=== PATIENT | male | born 1960 | race Caucasian/White ===

== ENCOUNTER 2020-02-11 04:26 | Observation (INO) | payer BC ==
[~2020-02-11] VITALS: Ht 180.3 cm; Wt 96.5 kg
--- NOTE | 2020-02-11 04:31 | NUR ---
Note floraone in EDM - 02/11/20 at 0432 by [email or web address] report from SYLVIA Bobo. assuming care at this time. [facility] [place] [facility]. obvious weakness to lue. pt unsteady of feet. 1assist required.
--- NOTE | 2020-02-11 04:49 | NUR ---
EKG DONE IN TRIAGE
[2020-02-11] MEDS ORDERED: ASPIRIN 81 MG TABLET CHEW PO ONE (05:00)
[2020-02-11] MEDS ORDERED: SODIUM CHLORIDE FLUSH 10ML SYR IVF ONE (05:00)
[2020-02-11] MEDS ORDERED: LORazepam 1MG TABLET PO ONE (05:00)
[2020-02-11 05:03] LABS: BASOPHILS # (AUTO) 0.03 x10^3/uL (0-0.1); BASOPHILS % (AUTO) 0 % (0-1); EOSINOPHILS # (AUTO) 0.57 x10^3/uL (0-0.4); EOSINOPHILS % (AUTO) 8 % (1-7); LYMPHOCYTES # (AUTO) 2.27 x10^3/uL (1-3.4); LYMPHOCYTES % (AUTO) 30 % (22-44); MD NO; MEAN CORPUSCULAR HEMOGLOBIN 29.5 pg (27.5-34.5); MEAN CORPUSCULAR HGB CONC 33.6 g/dL (33.2-36.2); MEAN CORPUSCULAR VOLUME 87.8 fL (81-97); MEAN PLATELET VOLUME 8.5 fL (7.4-10.4); MONOCYTES # (AUTO) 0.68 x10^3/uL (0.2-0.8); MONOCYTES % (AUTO) 9 % (2-9); NEUTROPHILS # (AUTO) 3.92 x10^3/uL (1.8-6.8); NEUTROPHILS % (AUTO) 52 % (42-75); PLATELET COUNT 232 x10^3/uL (130-400); RED BLOOD COUNT 5.39 x10^6/uL (4.38-5.82); RED CELL DISTRIBUTION WIDTH 13.3 % (9.4-14.8)
[2020-02-11] MEDS ORDERED: ASPIRIN 81 MG TABLET CHEW ONE (05:12)
[2020-02-11 05:13] LABS: ALBUMIN 3.9 g/dL (3.4-5.0); ANION GAP 7 mmol/L (5-15); CALCIUM 9.2 mg/dL (8.5-10.1); CHLORIDE 107 mmol/L (98-107)
[2020-02-11] MEDS ORDERED: LORazepam 1MG TABLET ONE (05:13)
[2020-02-11 05:17] LABS: TROPONIN I < 0.015 ng/mL (0.000-0.045)
--- NOTE | 2020-02-11 06:56 | NUR ---
RECEIVED REPORT FROM SYLVIA JASSO. THIS RN TO ASSUME CARE. PT LAYING IN BED, NO SIGNS OF DISTRESS. WILL CONTINUE TO MONITOR AND WATCH FOR ORDERS.
[2020-02-11] MEDS ORDERED: GLUCOSAMINE PO (07:00)
[2020-02-11] MEDS ORDERED: TUMERIC PO (07:01)
--- NOTE | 2020-02-11 07:38 | NUR ---
HOSPITALIST TO BEDSIDE. PT SITTING IN BED, NO SIGNS OF DISTRESS. REPORT GIVEN TO SYLVIA SEWELL.
[2020-02-11] MEDS ORDERED: ONDANSETRON 2MG/ML, 2ML IVPush PRN (08:00)
[2020-02-11] MEDS ORDERED: LABETALOL 5MG/ML, 20ML IVPush PRN (08:00)
[2020-02-11] MEDS ORDERED: NITROGLYCERIN 0.4 MG BOTTLE (25 TABS) SL PRN (08:00)
[2020-02-11] MEDS ORDERED: ACETAMINOPHEN 325 MG TABLET PO PRN (08:00)
[2020-02-11] MEDS ORDERED: NITROGLYCERIN 0.4 MG/SPRAY SL PRN (08:00)
[2020-02-11] MEDS ORDERED: MORPHINE SULFATE 4 MG/ML, 1ML IVPush PRN (08:00)
[2020-02-11] MEDS ORDERED: ENOXAPARIN 40 MG/0.4 ML SQ SCH (08:00)
[2020-02-11] MEDS ORDERED: ONDANSETRON ODT 4 MG PO PRN (08:00)
[2020-02-11 08:10] LABS: TROPONIN I < 0.015 ng/mL (0.000-0.045)
[2020-02-11 09:05] VITALS: BP 162/111
[2020-02-11 13:10] LABS: TROPONIN I < 0.015 ng/mL (0.000-0.045)
[2020-02-11 13:50] VITALS: BP 138/90
[2020-02-11] MEDS ORDERED: BUDE10.2 INH (16:18)
[2020-02-11 19:36] LABS: TROPONIN I < 0.015 ng/mL (0.000-0.045)
[2020-02-11] MEDS: BUDESONIDE 0.5 MG/2 ML INHA NPPB SCH (20:05)
[2020-02-11 21:52] VITALS: BP 138/83
[2020-02-12 01:53] VITALS: BP 150/87
[2020-02-12 04:39] LABS: BASOPHILS # (AUTO) 0.03 x10^3/uL (0-0.1); BASOPHILS % (AUTO) 0 % (0-1); EOSINOPHILS # (AUTO) 0.53 x10^3/uL (0-0.4); EOSINOPHILS % (AUTO) 7 % (1-7); LYMPHOCYTES # (AUTO) 2.59 x10^3/uL (1-3.4); LYMPHOCYTES % (AUTO) 35 % (22-44); MD NO; MEAN CORPUSCULAR HEMOGLOBIN 29.7 pg (27.5-34.5); MEAN CORPUSCULAR HGB CONC 33.3 g/dL (33.2-36.2); MEAN CORPUSCULAR VOLUME 89.1 fL (81-97); MEAN PLATELET VOLUME 8.4 fL (7.4-10.4); MONOCYTES # (AUTO) 0.62 x10^3/uL (0.2-0.8); MONOCYTES % (AUTO) 9 % (2-9); NEUTROPHILS # (AUTO) 3.56 x10^3/uL (1.8-6.8); NEUTROPHILS % (AUTO) 49 % (42-75); PLATELET COUNT 212 x10^3/uL (130-400); RED BLOOD COUNT 5.15 x10^6/uL (4.38-5.82); RED CELL DISTRIBUTION WIDTH 13.3 % (9.4-14.8)
[2020-02-12 04:45] LABS: ALBUMIN 3.4 g/dL (3.4-5.0); ANION GAP 7 mmol/L (5-15); CALCIUM 8.7 mg/dL (8.5-10.1); CHLORIDE 107 mmol/L (98-107)
[2020-02-12 04:57] LABS: ALANINE AMINOTRANSFERASE 45 U/L (12-78); ALKALINE PHOSPHATASE 74 U/L (45-117); BILIRUBIN,TOTAL 0.7 mg/dL (0.2-1.0); CHOL/HDL RATIO 4.7; CHOLESTEROL, TOTAL 175 mg/dL (140-239); CREATININE 1.16 mg/dL (0.7-1.3); HDL CHOL % 21 % (26-37); HDL CHOLESTEROL (DIRECT) 37 mg/dL (40-60); LDL CHOLESTEROL,CALCULATED 94 mg/dL (54-169); LDL/HDL RATIO 2.5 (0.5-3.0); TOTAL PROTEIN 7.2 g/dL (6.4-8.2); TRIGLYCERIDES 219 mg/dL (50-200); VLDL CHOLESTEROL 44 mg/dL (0-25)
[2020-02-12] MEDS ORDERED: ASPIRIN 325 MG TABLET PO SCH (06:00)
[2020-02-12 08:10] VITALS: BP 141/96
[2020-02-12] MEDS ORDERED: LISINOPRIL 10 MG TABLET PO SCH (09:00)
[2020-02-12] MEDS: BUDESONIDE 0.5 MG/2 ML INHA NPPB SCH (09:34)
[2020-02-12] MEDS ORDERED: LISI-167 PO (13:26)
[2020-02-12] MEDS ORDERED: ASPI325T17 PO (13:26)
[2020-02-12] MEDS ORDERED: LEVO100T PO (13:26)
[2020-02-12] MEDS ORDERED: ATOR20TA37 PO (13:30)
[2020-02-12 13:45] VITALS: BP 134/90
[2020-02-13] MEDS ORDERED: LEVOTHYROXINE 100 MCG TABLET PO SCH (06:00)
== END 2020-02-12 17:00 | disposition home or self-care (01) ==
LOC: ED 06:40 → SUATTDRO 07:30 → INTOOBSV 07:38 → 5SO 07:38
PROVIDERS: ADMIT Internal Medicine; ATTEND Internal Medicine
DX: I20.8 Other forms of angina pectoris (principal); I10 Essential (primary) hypertension; E03.9 Hypothyroidism, unspecified; E78.5 Hyperlipidemia, unspecified; J45.20 Mild intermittent asthma, uncomplicated; R20.2 Paresthesia of skin; Z79.899 Other long term (current) drug therapy; Z79.890 Hormone replacement therapy; Z79.82 Long term (current) use of aspirin
CPT/HCPCS: 36415; 71045; 80048; 80053; 80061; 82040; 83880; 84439; 84443; 84484; 85025; 93005; 93017; 94640; 96372; 99285; G0378; J1650; J7626

== ENCOUNTER 2020-09-28 16:56 | Emergency (ER) | payer BC ==
[~2020-09-28] VITALS: Ht 180.3 cm; Wt 94.7 kg
[~2020-09-28 16:56] MED LIST: ASPI325T17 PO; ATOR20TA37 PO; BUDE10.2 INH; GLUCOSAMINE PO; LEVO100T PO; LISI-167 PO; TUMERIC PO
[2020-09-28] MEDS ORDERED: SODIUM CHLORIDE FLUSH 10ML SYR IVF ONE (17:30)
[2020-09-28] MEDS ORDERED: ASPIRIN 81 MG TABLET CHEW PO ONE (17:30)
[2020-09-28] MEDS ORDERED: ASPIRIN 81 MG TABLET CHEW ONE (17:30)
[2020-09-28 18:06] LABS: ALBUMIN 4.3 g/dL (3.4-5.0); ANION GAP 7 mmol/L (5-15); BASOPHILS % (AUTO) 1 % (0-1); CALCIUM 9.6 mg/dL (8.5-10.1); CHLORIDE 105 mmol/L (98-107); CREATININE 1.24 mg/dL (0.7-1.3); EOSINOPHILS % (AUTO) 2 % (1-7); LYMPHOCYTES % (AUTO) 22 % (22-44); MEAN CORPUSCULAR HEMOGLOBIN 30.1 pg (27.5-34.5); MEAN CORPUSCULAR HGB CONC 34.5 g/dL (33.2-36.2); MEAN PLATELET VOLUME 8.4 fL (7.4-10.4); MONOCYTES % (AUTO) 7 % (2-9); NEUTROPHILS % (AUTO) 68 % (42-75); PLATELET COUNT 276 x10^3/uL (130-400); RED BLOOD COUNT 5.33 x10^6/uL (4.38-5.82); RED CELL DISTRIBUTION WIDTH 13.2 % (9.4-14.8)
[2020-09-28 18:10] LABS: MD NO; TROPONIN I < 0.015 ng/mL (0.000-0.045)
[2020-09-28] MEDS ORDERED: CARBAMIDE PEROXIDE EAR DROPS 6.5%, 15ML RIGHT EAR ONE (19:00)
[2020-09-28 19:27] VITALS: BP 131/72
== END 2020-09-28 19:43 | disposition home or self-care (01) ==
LOC: ED 18:21
DX: H61.21 Impacted cerumen, right ear (principal); R07.89 Other chest pain; R94.31 Abnormal electrocardiogram [ECG] [EKG]; I10 Essential (primary) hypertension; E03.9 Hypothyroidism, unspecified; J45.909 Unspecified asthma, uncomplicated; Z87.891 Personal history of nicotine dependence
CPT/HCPCS: 36415; 71045; 80048; 82040; 83880; 84439; 84443; 84484; 85025; 93005; 99285

== ENCOUNTER 2021-01-27 20:28 | Emergency (ER) | payer BC ==
[~2021-01-27] VITALS: Ht 180.3 cm; Wt 92.1 kg
--- NOTE | 2021-01-27 20:55 | NUR ---
THIS IS A 60M THAT COMES IN FOR CHEST ACHING (NOT PAIN) STS HAS BEEN GOING ON SINCE ABOUT THE START OF THE YEAR. DENIES RADIATION, SOB, N/V. PT STS NEW DX OF HTN AND ANXIETY. PT CONNECTED TO ALL MONITORING VSS NADN AT THIS TIME CALM COOPERATIVE AND PLEASANT WITH STAFF
[2021-01-27] MEDS ORDERED: SODIUM CHLORIDE FLUSH 10ML SYR IVF ONE (21:00)
[2021-01-27 21:21] LABS: BASOPHILS % (AUTO) 1 % (0-1); EOSINOPHILS % (AUTO) 3 % (1-7); LYMPHOCYTES % (AUTO) 27 % (22-44); MEAN CORPUSCULAR HEMOGLOBIN 29.2 pg (27.5-34.5); MEAN CORPUSCULAR HGB CONC 33.8 g/dL (33.2-36.2); MEAN PLATELET VOLUME 8.2 fL (7.4-10.4); MONOCYTES % (AUTO) 9 % (2-9); NEUTROPHILS % (AUTO) 61 % (42-75); PLATELET COUNT 271 x10^3/uL (130-400); RED BLOOD COUNT 4.92 x10^6/uL (4.38-5.82); RED CELL DISTRIBUTION WIDTH 13.2 % (9.4-14.8)
[2021-01-27 21:22] LABS: MD NO
[2021-01-27 21:27] LABS: ALANINE AMINOTRANSFERASE 34 U/L (12-78); ANION GAP 6 mmol/L (5-15); CALCIUM 8.8 mg/dL (8.5-10.1); CHLORIDE 106 mmol/L (98-107); CREATININE 1.17 mg/dL (0.7-1.3)
[2021-01-27 21:37] LABS: ALKALINE PHOSPHATASE 99 U/L (45-117); BILIRUBIN,TOTAL 0.5 mg/dL (0.2-1.0); TOTAL PROTEIN 7.6 g/dL (6.4-8.2); TROPONIN I < 0.015 ng/mL (0.000-0.045)
--- NOTE | 2021-01-27 21:52 | NUR ---
pt resting on rosa reilly at this time
[2021-01-27 21:58] LABS: FREE T4 (FREE THYROXINE) 1.19 ng/dL (0.76-1.46)
--- NOTE | 2021-01-27 22:04 | NUR ---
ALL RESULTS BACK CHART UP FOR RCK AT THIS TIME
[2021-01-27 23:04] VITALS: BP 135/90
--- NOTE | 2021-01-27 23:04 | NUR ---
Patient/Caregiver given discharge instructions and they have confirmed that they understand the instructions. Patient ambulatory with steady gait.
== END 2021-01-27 23:12 | disposition home or self-care (01) ==
LOC: ED 20:54
DX: R07.89 Other chest pain (principal); I10 Essential (primary) hypertension; E03.9 Hypothyroidism, unspecified; J45.909 Unspecified asthma, uncomplicated; Z87.891 Personal history of nicotine dependence
CPT/HCPCS: 36415; 71045; 80053; 84439; 84443; 84481; 84484; 85025; 93005; 99285

== ENCOUNTER 2021-02-07 16:14 | Emergency (ER) | payer BC ==
[~2021-02-07] VITALS: Ht 177.8 cm; Wt 90.0 kg
--- NOTE | 2021-02-07 17:18 | NUR ---
block tester: pt from lobby to room 11
[2021-02-07 17:56] LABS: BASOPHILS % (AUTO) 1 % (0-1); EOSINOPHILS % (AUTO) 2 % (1-7); LYMPHOCYTES % (AUTO) 21 % (22-44); MEAN CORPUSCULAR HEMOGLOBIN 29.6 pg (27.5-34.5); MEAN CORPUSCULAR HGB CONC 34.5 g/dL (33.2-36.2); MEAN PLATELET VOLUME 8.4 fL (7.4-10.4); MONOCYTES % (AUTO) 7 % (2-9); NEUTROPHILS % (AUTO) 69 % (42-75); PLATELET COUNT 251 x10^3/uL (130-400); RED BLOOD COUNT 5.02 x10^6/uL (4.38-5.82); RED CELL DISTRIBUTION WIDTH 13.3 % (9.4-14.8)
[2021-02-07 18:09] LABS: ALBUMIN 4.1 g/dL (3.4-5.0); ANION GAP 5 mmol/L (5-15); CALCIUM 8.9 mg/dL (8.5-10.1); CHLORIDE 108 mmol/L (98-107); CREATININE 1.05 mg/dL (0.7-1.3)
[2021-02-07 18:13] LABS: TROPONIN I < 0.015 ng/mL (0.000-0.045)
[2021-02-07 18:22] LABS: MD NO
[2021-02-07 18:55] VITALS: BP 135/94
--- NOTE | 2021-02-07 19:02 | NUR ---
Patient given discharge instructions and they have confirmed that they understand the instructions. Patient ambulatory with steady gait.
== END 2021-02-07 19:03 | disposition home or self-care (01) ==
LOC: ED 17:48
DX: R07.89 Other chest pain (principal); F41.1 Generalized anxiety disorder; R94.31 Abnormal electrocardiogram [ECG] [EKG]; I10 Essential (primary) hypertension; J45.909 Unspecified asthma, uncomplicated; E03.9 Hypothyroidism, unspecified; Z87.891 Personal history of nicotine dependence
CPT/HCPCS: 36415; 71045; 80048; 82040; 84484; 85025; 93005; 99285